=== PATIENT | female | born 1960 | race Two or more races ===

== ENCOUNTER 2018-12-15 08:56 | Day surgery (SDC) | payer OTHER ==
[~2018-12-15] VITALS: Ht 154.9 cm; Wt 76.2 kg
[2018-12-15] VITALS (9 sets, daily range): BP systolic 98–124; BP diastolic 47–77
[2018-12-15] MEDS ORDERED: LR 1000ml 1,000 ML IVLG SCH (09:42)
[2018-12-15] MEDS ORDERED: Midazolam 2mg/2ml Inj IVP PRN (09:45)
[2018-12-15] MEDS ORDERED: DiphenhydrAMINE 50mg/ml Inj IVP PRN (09:45)
[2018-12-15] MEDS ORDERED: Atropine Inj 1mg/10ml Syr IV PRN (09:45)
[2018-12-15] MEDS ORDERED: fentaNYL 100 mcg/2 mL IV PRN (09:45)
--- NOTE | 2018-12-15 09:46 | Anethesia Preoperative Eval ---
Anesthesia Pre-op PMH/ROS General Date of Evaluation: December 15, 2018 Time of Evaluation: 09:45 Anesthesiologist: tonia ASA Score: ASA 3 Mallampati Score Class I : Soft palate, uvula, fauces, pillars visible Class II: Soft palate, uvula, fauces visible Class III: Soft palate, base of uvula visible Class IV: Only hard plate visible Mallampati Classification: Class II Surgeon: cami Diagnosis: gerd Surgical Procedure: egd Anesthesia History: none Family History: no anesthesia problems Allergies: Coded Allergies: No Known Allergies (Unverified , 12/15/18) Medications: see eMAR Patient NPO?: Yes Past Medical History Cardiovascular: Reports: other - hypercholesterolemia Gastrointestinal/Genitourinary: Reports: other - hemorrhoids, gastritis, appendectomy Neurologic/Psychiatric: Reports: depression/anxiety Endocrine: Reports: DM HEENT: Reports: glaucoma Anesthesia Pre-op Phys. Exam Physician Exam Last Vital Signs Date Time Temp Pulse Resp B/P (MAP) Pulse Ox O2 Delivery O2 Flow Rate FiO2 12/15/18 09:53 Room Air Constitutional: NAD Neurologic: CN 2-12 intact Cardiovascular: RRR Respiratory: CTA Gastrointestinal: S/NT/ND Airway Exam Mallampati Score: Class II MO: limited Neck: flexible TMD: 2fb Anesthesia Pre-op A/P Risk Assessment & Plan Assessment: asa3 Plan: mac Status Change Before Surgery: No Pre-Antibiotics Drug: Micheline Nelson MD December 15, 2018 09:45
[2018-12-15] MEDS ORDERED: LOSARTAN POTASS25 MG ORAL (09:50)
[2018-12-15] MEDS ORDERED: SIMVASTATIN40 MG ORAL (09:50)
[2018-12-15] MEDS ORDERED: VITAMIN D400 INTLU ORAL (09:50)
[2018-12-15] MEDS ORDERED: [UNRECOGNIZED DRUG - OTHER] PO (09:50)
[2018-12-15] MEDS ORDERED: OYSTER SHELL C500 MG PO (09:50)
[2018-12-15] MEDS ORDERED: HYOSCYAMINE0.125 M2 PO (09:50)
[2018-12-15] MEDS ORDERED: OMEPRAZOLE20 M2 ORAL (09:50)
[2018-12-15] MEDS ORDERED: ZANTAC150 MG ORAL (09:50)
[2018-12-15] MEDS ORDERED: HYOSCYAMINE0.375 M1 ORAL (09:50)
[2018-12-15] MEDS ORDERED: ACID GONE ANTA355 M1 ORAL (09:50)
[2018-12-15] MEDS ORDERED: GLIPIZIDE-METF1 EAC2 PO (09:50)
[2018-12-15] MEDS ORDERED: LR 1000ml ONE (10:00)
[2018-12-15] MEDS ORDERED: Lidocaine 1% MPF 10mg/ml 5ml ONE (10:00)
[2018-12-15] MEDS ORDERED: Propofol 200mg/20ml IV ONE (10:00)
--- NOTE | 2018-12-15 10:11 | Short Stay Surgery H&P ---
History of Present Illness History of Present Illness Chief Complaint Abdominal pains/dysphagia/GERDs. ART Martinez is a 58 year old female who was admitted on for GERDS/ abdominal pains/dysphagia Patient History Allergies: Coded Allergies: No Known Allergies (Unverified , 12/15/18) PAST MEDICAL HISTORY: (1) H/O shoulder surgery (2) History of bladder surgery (3) H/O knee surgery (4) Hyperlipidemia (5) Diabetes (6) Glaucoma (7) Sleep apnea Past Surgeries: (1) Hypertension Medication History Scheduled Calcium Carbonate (Oyster Shell Calcium), 500 MG PO DA, (Reported) Glipizide/Metformin Hcl (Glipizide-Metformin 5-500 Mg), 1 EACH PO DA, (Reported) Hyoscyamine Sulfate (Hyoscyamine Sulfate), 0.125 MG PO DA, (Reported) Hyoscyamine* (Levsinex*), 0.375 MG ORAL EVERY 12 HOURS, (Reported) Losartan Potassium* (Losartan Potassium*), 25 MG ORAL DAILY, (Reported) Mag Carb/Al Hydrox/Alginic Ac* (Acid Gone Antacid Liquid*), 15 ML ORAL FOUR TIMES A DAY, (Reported) Omeprazole (Omeprazole), 20 MG ORAL DAILY, (Reported) Ranitidine Hcl* (Zantac*), 150 MG ORAL DAILY, (Reported) Simvastatin (Zocor), 40 MG ORAL BEDTIME, (Reported) Vitamin D (Vitamin D3), 5,000 UNITS ORAL DAILY, (Reported) [Regul], 1 CAP PO DA, (Reported) Review of Systems Cardiovascular: Reports: hypertension Respiratory: Reports: sleep apnea Skeletal: Reports: trauma Gastrointestinal: Reports: gastro esophageal reflux disease Genitourinary: Reports: no symptoms Neurologic: Reports: no symptoms Endocrine: Reports: diabetes - type 2 Hematologic: Reports: no symptoms Physical Exam Vital Signs Last Vital Signs Date Time Temp Pulse Resp B/P (MAP) Pulse Ox O2 Delivery O2 Flow Rate FiO2 12/15/18 09:53 Room Air Skin: normal HENT: normal Heart: normal Abdomen: abnormal Extremities: normal Genitourinary: normal Plan Plan of Care Upper GI endoscopy with biopsy. Preop Interventions None. Summary of Findings See the reports. Attestation Are the patient's medical conditions optimized for surgery? Attestation Response: yes Anabell Delgadillo MD December 15, 2018 10:11
--- NOTE | 2018-12-15 10:12 | Pre-Procedure Note/Attestation ---
Pre-Procedure Note/Attestation Complete Prior to Procedure Planned Procedure: left Procedure Narrative: Examination of the upper GI tract via endoscopic exam. Indications for Procedure Pre-Operative Diagnosis: R/O Peptic ulcer/gastritis/esophagitis Attestation I attest that I discussed the nature of the procedure; its benefits; risks and complications; and alternatives (and the risks and benefits of such alternatives ), prior to the procedure, with the patient (or the patient's legal scheduling representative). I attest that, if there was a reasonable possibility of needing a blood transfusion, the patient (or the patient's legal scheduling representative) was given the [place] Department [employer] standardized written summary, pursuant to the Jason Lucy Blood Safety Act ([place] Health and Safety Code # 1645, as amended). I attest that I re-evaluated the patient just prior to the surgery and that there has been no change in the patient's H&P, except as documented below: Anabell Delgadillo MD December 15, 2018 10:12
--- NOTE | 2018-12-15 10:45 | Endoscopy Procedure Note ---
Endoscopy Procedure Note General Indication for Procedure: Abdominal pain/GERDs/dysphagia Procedures Performed: EGD - Mild gastritis with erosions in the antrum and bile in the stomach. Biopsy obtained from antral area. Specimen: yes Pt Tolerated Procedure Well: Yes Anesthesia Anesthesiologist: Dr. Nice Anesthesia: moderate sedation Medications Medication Given: see anesthesia record Inserted Devices Implant(s) used?: No Quality Quality of Bowel Preparation: Excellent GI Core Measures 50 yrs or older w/o bx or poly: Not Applicable 10yrs. F/U recommended: Not Applicable If not recommended, why?: Med reason:<3 yrs.: System Reason:<3 yrs.: Last colonoscopy >= to 3yrs: No Anabell Delgadillo MD December 15, 2018 10:45
--- NOTE | 2018-12-15 10:46 | Discharge Instructions ---
Discharge Instructions Discharge Instructions Follow up with: Visit the doctor in office after 2 weeks For Congestive Heart Failure Reminder Report to your physician any weight gain of 5 pounds or more in one week. Anabell Delgadillo MD December 15, 2018 10:46
--- NOTE | 2018-12-15 17:45 | Operative Note - Dictated ---
DATE OF OPERATION: 12/15/2018 SURGEON: Anabell Delgadillo M.D. PROCEDURE: Esophagogastroduodenoscopy with biopsy. PREOPERATIVE DIAGNOSES: Dysphagia, abdominal pain, gastroesophageal reflux, rule out peptic ulcer disease, gastritis, esophagitis. POSTOPERATIVE DIAGNOSIS: Evidence of moderate amount of bile in the stomach with mild generalized gastritis and few erosions in the antral area, which was biopsied. MEDICATION USED: Per Dr. Rosales, anesthesiologist. INSTRUMENT: GIF Olympus upper GI video endoscope. DESCRIPTION OF PROCEDURE: The patient after arriving in the endoscopy unit, was told about risks and benefits of the procedure, which she accepted and signed informed consent. She was then put on the left lateral decubitus position. After adequate IV sedation, the scope was gently passed through the cricopharyngeal area, was lodged into the upper esophagus, and gradually advanced towards gastroesophageal junction. The entire length of esophagus looked normal. No evidence of varices, inflammatory process, ulceration etc. were found. GE junction also looked normal without any evidence of hiatal hernia or Jett's. Finally, scope was guided into the stomach. Gastric cavity was distended. At this point revealed that there was moderate amount of bile material collected in the body of the stomach. Underlying mucosa showed evidence of mild inflammatory process consistent with generalized gastritis. On further examination, there was found couple of very superficial erosions over the anterior wall of the antral area. However, there was no any tumor, polyps, bleeding sites, etc. No hemangioma noted. At this time, a retroflexion maneuver was applied through the endoscope and the area of the gastroesophageal junction was examined at a closer fashion, which revealed no other abnormalities. Finally, the scope was passed through the pylorus. First and second portion of duodenum were found to be also completely normal. At this point, the scope was pulled out and the procedure was terminated. The patient tolerated the procedure well and left the endoscopy room in good condition. Anabell Delgadillo M.D. DR: ARYAN JOB#: [id number] CC:
--- NOTE | 2018-12-15 18:15 | Pre-op HX & Phy Repo 2 SIG ---
DATE OF ADMISSION: 12/15/2018 HISTORY OF PRESENT ILLNESS: This is a 58-year-old female who is being seen prior to undergoing the procedure for upper GI endoscopy, for which she has been scheduled for evaluation of his gastrointestinal conditions that she has been complaining subsequent to her work injury. The patient basically reports to me that she is experiencing pain and discomfort over the epigastric area, which occasionally radiates towards the chest. The intensity of pain is moderate, occasionally severe, and sometime it lasts for 2 hours, but, however, it comes intermittently and mostly aggravated by foods. She reports that she also does have some difficulty swallowing solids and liquids. This condition started after she was injured at [employer] and was placed on multiple medications including nonsteroidal anti-inflammatory agents and strong analgesics as well. She also reports to me that she does have some nausea at times, but there has been no vomiting. There is also periodic diarrhea and constipation. The patient has been treated with multiple medications including Zantac and currently omeprazole, which seems to be helpful to some extent. However, she has stopped taking nonsteroidal anti-inflammatory agents such as naproxen and ibuprofen that she had been started on subsequent to her work injury and she finally stopped later. The applicant also denies having any major upper GI bleeding, hematemesis, or melena though she has occasionally seen some minimal amount of blood over the toilet water, which seems to be related to the hemorrhoids. She, however, has undergone colonoscopic examination at [facility] where she usually receives her medical care approximately 2 years ago with a diagnosis of hemorrhoids as well. Currently, the patient is being seen for evaluation before the anesthesia starts for her upper GI endoscopy. 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 She also reports that she has had history of sleep apnea, glaucoma, diabetes mellitus, hypertension, and hyperlipidemia. PAST SURGICAL HISTORY: As mentioned. History of knee operation, shoulder operation for the work related the injuries and also she has had the history of bladder suspension repair in 2015. ALLERGIES: None significant. FAMILY HISTORY: Reviewed. She reports that the mother has had high blood pressure and the father has hyperlipidemia. HABITS: She does not drink alcohol and does not smoke cigarettes. MEDICATIONS: Currently are omeprazole, Zantac, simvastatin, glipizide, and Tylenol. REVIEW OF SYSTEMS: Basically history of present illness. She has basically no chest pain or shortness of breath at this time, however, she has some tenderness over her knees and shoulders that she reports that has happened subsequent to her work injury. PHYSICAL EXAMINATION: GENERAL: At this time alert and oriented female, does not seem to be in any acute distress. VITAL SIGNS: Temperature 96.9, pulse rate 20 per minute, respiratory rate 68 per minute, blood pressure 116/68, and oxygen saturation 99% on room air. HEENT: Normocephalic. Pupils equal in size and reactive to light and accommodation. No visible jaundice. Buccal cavity, tongue midline, well hydrated. No ulcers. NECK: Supple. No JVD, thyromegaly, or adenopathy. CHEST: Clear to auscultation and percussion. No rales or rhonchi. HEART: S1, S2 normal. Regular rhythm. No gallops or murmur. ABDOMEN: Soft. There is mild tenderness over the epigastric area. However, there is no organomegaly, no palpable mass noted at this time. Bowel sounds are present. EXTREMITIES: Unremarkable. SKIN AND LYMPHATICS: Nonsignificant. NEUROLOGIC: Nonsignificant. PRELIMINARY PREOPERATIVE IMPRESSION: 1. Epigastric pain of uncertain etiology, rule out NSAID-induced gastropathy, gastritis, peptic ulcer disease. 2. History of dysphagia, rule out NSAID-induced esophagitis or esophageal spasm secondary to gastroesophageal reflux aggravated by side effects of medications. 3. Hyperlipidemia. 4. History of sleep apnea, hypertension, diabetes mellitus, stable. RECOMMENDATION: The applicant seems to be stable at this time to undergo the procedure for upper GI endoscopy, for which she has been scheduled. She understands the risks and benefits and will sign the consent. Said Bob Delgadillo DR: ANTHONY JOB#: [id number] CC:
--- NOTE | 2018-12-18 08:56 | Immediate Post-Op Evaluation ---
Immediate Post-Op Evalulation Immediate Post-Op Evalulation Procedure: egd w/bx Date of Evaluation: December 15, 2018 Blood Products: none Estimated Blood Loss: negligible Blood Pressure Systolic: 102 Blood Pressure Diastolic: 61 Pulse Rate: 63 Respiratory Rate: 18 O2 Sat by Pulse Oximetry: 100 Temperature (Fahrenheit): 97.5 Pain Score (1-10): 0 Nausea: No Vomiting: No Complications none Patient Status: awake, reacts, patent Hydration Status: adequate Drug: Micheline Nelson MD December 18, 2018 08:56
[2018-12-18 08:58] VITALS: BP 120/71
--- NOTE | 2018-12-18 08:58 | 48 Hour Post Anesthesia Eval ---
Post Anesthesia Evaluation Procedure: egd w/bx Date of Evaluation: December 15, 2018 Blood Pressure Systolic: 120 0: 71 Pulse Rate: 62 Respiratory Rate: 18 Temperature (Fahrenheit): 97.5 O2 Sat by Pulse Oximetry: 100 Airway: patent Nausea: No Vomiting: No Pain Intensity: 0 Hydration Status: adequate Cardiopulmonary Status: stable Mental Status/LOC: patient returned to baseline Post-Anesthesia Complications: none Follow-up care needed: N/A Micheline Nice MD December 18, 2018 08:58
== END 2018-12-15 12:15 | disposition home or self-care (01) ==
LOC: GAS 08:56
DX: R13.10 Dysphagia, unspecified (principal); K29.50 Unspecified chronic gastritis without bleeding; R10.9 Unspecified abdominal pain; K21.9 Gastro-esophageal reflux disease without esophagitis; E11.9 Type 2 diabetes mellitus without complications; I10 Essential (primary) hypertension; E78.5 Hyperlipidemia, unspecified; G47.30 Sleep apnea, unspecified; F32.9 Major depressive disorder, single episode, unspecified; F41.9 Anxiety disorder, unspecified; Z90.89 Acquired absence of other organs
CPT/HCPCS: 43239; 82962; J2704; 94003; 94150